=== PATIENT | male | born 1990 | race Caucasian/White ===

== ENCOUNTER 2018-10-19 00:33 | Emergency (ER) | payer OTHER, SELFPAY ==
[2018-10-19 00:34] VITALS: BP 161/83; PULSE 82; RESP 17; TEMP 36.6; O2SAT 97; BMI 40.7
[2018-10-19 01:14] VITALS: BP 165/70
--- NOTE | 2018-10-19 01:58 | ED.DEP ---
ED Disposition - Plan for ED Patient: Instructions: ED Hypertension Poss Referrals: Care Physician,No Primary [Primary Care Provider] - Ash Aggarwal III, MD [STAFF PHYSICIAN] -
--- NOTE | 2018-10-19 02:01 | ED.VISSUMM ---
- ER Visit Summary Date of Service: 10/19/18 Chief Complaint: Elevated blood pressure History of Present Illness: The patient is a 27 M presenting with concern for elevated blood pressure. Patient states he had a nosebleed earlier today. This occurred 3-4 hours ago. He had no trauma. He is not on anticoagulants. The bleeding has resolved. He states he has had elevated blood pressure in the past but is not currently on medications. He does not currently have a primary care physician. He denies headache or chest pain. Denies other complaints. Physical Examination: Vitals are stable. Blood pressure 165/70. Patient is afebrile. Alert no acute distress. HEENT exam dried blood left nares, no active bleeding. No blood in the posterior pharynx. Neck is supple. Lungs are clear and equal bilaterally. Heart is regular rate and rhythm. Abdomen is soft nontender nondistended. Extremities are unremarkable. Skin is warm and dry. No focal neurologic deficit. Remainder of exam is unremarkable. Emergency Department Course and Treatment: He was given a prescription for hydrochlorothiazide. Advised he needs to follow-up for a blood pressure recheck. Patient is advised to follow-up with Dr. Aggarwal lining ironer for no doc. Advised to return to the ED for any worsening complaints. Disposition: Discharge home Impression: Hypertension, epistaxis- resolved This note was generated with [employer] dictation software. It may contain incorrect words, spelling, and punctuation that were not noted in review of the chart prior to signing ED Disposition - Plan for ED Patient: Instructions: ED Hypertension Poss Prescriptions: Hydrochlorothiazide [Hctz] 12.5 mg PO DAILY #30 tablet Referrals: Ash Aggarwal III, MD [STAFF PHYSICIAN] - Care Physician,No Primary [Primary Care Provider] -
--- NOTE | 2018-10-19 02:04 | ED.DCSUM_ITS ---
- ER Visit Summary Date of Service: 10/19/18 Chief Complaint: Elevated blood pressure History of Present Illness: The patient is a 27 M presenting with concern for elevated blood pressure. Patient states he had a nosebleed earlier today. This occurred 3-4 hours ago. He had no trauma. He is not on anticoagulants. The bleeding has resolved. He states he has had elevated blood pressure in the past but is not currently on medications. He does not currently have a primary care physician. He denies headache or chest pain. Denies other complaints. Physical Examination: Vitals are stable. Blood pressure 165/70. Patient is afebrile. Alert no acute distress. HEENT exam dried blood left nares, no active bleeding. No blood in the posterior pharynx. Neck is supple. Lungs are clear and equal bilaterally. Heart is regular rate and rhythm. Abdomen is soft nontender nondistended. Extremities are unremarkable. Skin is warm and dry. No focal neurologic deficit. Remainder of exam is unremarkable. Emergency Department Course and Treatment: He was given a prescription for hydrochlorothiazide. Advised he needs to follow-up for a blood pressure recheck. Patient is advised to follow-up with Dr. Aggarwal emission specialist for no doc. Advised to return to the ED for any worsening complaints. Disposition: Discharge home Impression: Hypertension, epistaxis- resolved This note was generated with [employer] dictation software. It may contain incorrect words, spelling, and punctuation that were not noted in review of the chart prior to signing ED Disposition - Plan for ED Patient: Instructions: ED Hypertension Poss Prescriptions: Hydrochlorothiazide [Hctz] 12.5 mg PO DAILY #30 tablet Referrals: Ash Aggarwal III, MD [STAFF PHYSICIAN] - Care Physician,No Primary [Primary Care Provider] -
[2018-10-19 02:19] VITALS: BP 150/87; PULSE 80; RESP 15; O2SAT 98
--- NOTE | 2018-10-19 02:20 | ED.RN ---
PT GIVEN WRITTEN AND VERBAL DISCHARGE INSTRUCTIONS AND HOME GOING PRESCRIPTIONS. PT VERBALIZES UNDERSTANDING AND DENIES ANY FURTHER QUESTIONS. PT TO FOLLOW UP WITH DR. WILKINSON AND RETURN FOR ANY NEW OR WORSENED SX. T AMBULATES OUT OF DEPT WITH FATHER.
== END 2018-10-19 02:20 | disposition home or self-care (01) ==
LOC: ED 01:13
PROVIDERS: Emergency Provider Emergency Medicine
DX: I10 Essential (primary) hypertension (principal); R04.0 Epistaxis
CPT/HCPCS: 99282

== ENCOUNTER 2019-11-25 08:07 | Emergency (ER) | payer SELFPAY ==
[2019-11-25 08:09] VITALS: BP 179/86; PULSE 81; RESP 17; TEMP 37.3; O2SAT 97; BMI 44.4
[2019-11-25 08:12] VITALS: BP 179/86; PULSE 81; RESP 17; TEMP 37.3; O2SAT 97
--- NOTE | 2019-11-25 08:15 | ED.RN ---
PT REPORTS HE THINKS HIS FEVER WAS 103 A FEW NIGHTS AGO
--- NOTE | 2019-11-25 08:25 | RAD_ITS ---
STUDY: X-RAY CHEST REASON FOR EXAM: Male, 28 years old. Cough, fever, SOB -- x 4 days TECHNIQUE: 2 AP portable views COMPARISON: 2010 FINDINGS: EKG leads overlie the chest The lungs are clear and expanded. There is no demonstrated pleural abnormality. Normal size heart. Normal mediastinum and nicolasa. Normal visualized pulmonary arteries. Normal visualized aortic arch and descending thoracic aorta. Normal visualized thoracic spine. Normal visualized ribs, clavicles, and shoulders. There is no demonstrated abnormality of the visualized soft tissue structures of the upper abdomen. RAD/Chest 1 View (Portable) IMPRESSION: Normal x-ray examination of the chest. Electronically Signed: River Andujar MD at 9:17 EDT , Service support ,
--- NOTE | 2019-11-25 08:49 | ED.VISSUMM ---
- ER Visit Summary Date of Service: 11/25/19 Chief Complaint: Cough and fever History of Present Illness: The patient is a 28 M who presents with cough and fever that is been getting worse over the past 4 days. Patient states he felt like his fever broke a couple days ago. Patient states his temperature is up to 103 at home. Patient admits to a cough. Patient states it is mostly dry but occasionally he coughs up some green and white sputum. Patient also admits to a sore throat and some rhinorrhea. Patient admits to some shortness of breath at times. Patient admits to occasional pain in his chest and palpitations. Patient states his pain is worse with coughing. Patient states nothing makes his symptoms better or worse. Physical Examination: Vital signs are stable. Patient is afebrile. Patient is in no acute distress. Oral mucosa is pink and moist. Neck is supple. Trachea is midline. There is no JVD noted. Heart was regular rate and rhythm. Lungs are clear and equal bilaterally. Abdomen is soft. Bowel sounds are normal. There is no tenderness. There is no rebound or guarding noted. Skin is warm dry. Cranial nerves II through XII are intact. There are no focal motor or sensory deficits noted. Extremities are intact. There is no calf tenderness or edema. Test Results: Portable chest x-ray was obtained. There is no acute cardiopulmonary process. This is interpreted by the radiologist and myself. RSV swab was obtained and was negative. Influenza swab was obtained and was negative. Emergency Department Course and Treatment: Patient was advised of his results. Patient was instructed to drink plenty of fluids. Patient was instructed to quarantine himself for 2 weeks. Patient was given coronavirus instructions. Patient was instructed to take Tylenol or ibuprofen as needed for any fevers. Patient was instructed to return if worse in any way. Patient was instructed to follow-up with his primary care physician in 5-7 days. Patient understood and was agreeable with the plan. All questions were answered. Disposition: Discharge home Impression: Viral upper respiratory infection This note was generated with [employer] software. It may contain incorrect words, spelling, and punctuation that were not noted in review of the chart prior to signing ED Disposition - Plan for ED Patient: Disposition: Home or Assisted Living Diagnosis: Viral upper respiratory infection Instructions: ED Upper Resp Infec No Abx Tx Referrals: Care Physician,No Primary [Primary Care Provider] - Jaimie Mahajan MD [STAFF PHYSICIAN] - 5-7 Days
[2019-11-25 09:21] VITALS: BP 148/90; PULSE 76; RESP 11; TEMP 37.2; O2SAT 95
== END 2019-11-25 09:48 | disposition home or self-care (01) ==
PROVIDERS: Emergency Provider Emergency Medicine
DX: J06.9 Acute upper respiratory infection, unspecified (principal)
CPT/HCPCS: 71045; 87804; 87807; 99284